=== PATIENT | male | born 1990 | race Caucasian/White ===

== ENCOUNTER 2018-03-08 18:30 | Emergency (ER) | payer OTHER ==
--- NOTE | 2018-03-08 19:34 | EDPHY ---
H & P Stated Complaint: R testicle retracted, pain. Time Seen by Provider: 03/08/18 19:25 HPI/ROS: CHIEF COMPLAINT: "I haven't seen my right testicle in 3 months" HISTORY OF PRESENT ILLNESS: 27-year-old male via private vehicle complaining of inability to visualize his right testicle for the past 3 months. Atraumatic. Believes it is in the inguinal canal. In the ER today due to progressive worsening pain the past 2-3 days. Able to urinate without difficulty. No nausea or vomiting. No fever or chills. No back or flank pain. No straddle injury. Last oral intake 3:00 p.m. Today: REVIEW OF SYSTEMS: 10 systems reviewed and negative with the exception of the elements mentioned in the history of present illness PAST MEDICAL & SURGICAL HISTORY: No pertinent medical or surgical history SOCIAL HISTORY: Nonsmoker PHYSICAL EXAM (Prior to examination, patient consented to physical exam, hands were washed and my usual and customary physical exam procedures followed) 1) GENERAL: Well-developed, well-nourished, alert and oriented. Appears to be in no acute distress. 2) HEAD: Normocephalic, atraumatic 3) HEENT: Pupils equal, round, reactive to light bilaterally. Sclera anicteric. 4) NECK: Full range of motion, no meningeal signs. 5) LUNGS: Clear auscultation bilaterally, no wheezes, no rhonchi, no retractions. 6) HEART: Regular rate and rhythm, no murmur, no heave, no gallop. 7) ABDOMEN: No guarding, tender to palpation right inguinal region with soft tissue swelling, no overlying skin changes such as erythema or ecchymosis.. Negative peritoneal sign 8) MUSCULOSKELETAL: Moving all extremities, no focal areas of tenderness, no obvious trauma. No peripheral edema or discoloration. 9) BACK: No CVA tenderness, no midline vertebral tenderness, no fluctuance, no step-off, no obvious trauma, no visual or palpable abnormality. 10) SKIN: No rash, no petechiae. 11) : Penile exam negative, no urethral discharge. left testicle exam negative, no tenderness. Unable to palpate right testicle. There is a right inguinal mass with tenderness noted.. No scrotal abnormality such as cellulitis or Cruz's gangrene. DIFFERENTIAL DIAGNOSIS: In no particular order including but not limited to incarcerated testicular hernia, testicular necrosis, inguinal hernia - Personal History Current Tetanus/Diphtheria Vaccine: Yes Current Tetanus Diphtheria and Acellular Pertussis (TDAP): Yes Tetanus Vaccine Date: 2018 - Medical/Surgical History Hx Asthma: No Hx Chronic Respiratory Disease: No Hx Diabetes: No Hx Cardiac Disease: No Hx Renal Disease: No Hx Cirrhosis: No Hx Alcoholism: No Hx HIV/AIDS: No Hx Splenectomy or Spleen Trauma: No Other PMH: Denies - Social History Smoking Status: Never smoked Constitutional: Initial Vital Signs Temperature (C) 36.5 C 03/08/18 18:59 Heart Rate 86 03/08/18 18:59 Respiratory Rate 16 03/08/18 18:59 Blood Pressure 136/81 H 03/08/18 18:59 O2 Sat (%) 96 03/08/18 18:59 O2 Delivery Mode Room Air Allergies/Adverse Reactions: No Known Allergies Allergy (Unverified 03/08/18 18:58) Home Medications: Medication Instructions Recorded NK [No Known Home Meds] 03/08/18 Medical Decision Making - Diagnostics Imaging Results: Imaging Impressions Testicular Ultrasound 03/08/18 19:26 Impression: 1. Undescended testicle on the right in the inguinal canal with heterogeneous decreased echogenicity and lack of internal color flow enhancement. 2. Normal-appearing left testicle. 3. Borderline varicocele on the left. Findings discussed with Christina ALVARADO at 20:14 hour, 03/08/2018. Abdomen CT 03/08/18 20:46 Impression: 1. Inguinal hernia on the right containing omental fat along with undescended testicle with surrounding haziness of the fatty tissue suggesting inflammatory process. 2. No CT evidence of appendicitis, abscess or bowel obstruction. Findings discussed with Christina ALVARADO at 21:21 hour, 03/08/2018. Images reviewed myself ED Course/Re-evaluation: 8:17 p.m.: Ultrasound testicles interpreted by staff radiologist shows an undescended right testicle with no flow. Left testicle with positive flow. 9:30 p.m.: Consultation Dr. Amrit Morales regarding patient's no mental inguinal hernia. He recommended no emergent management did recommend consultation with Urology regarding his testicle. 9:42 p.m.: Consultation with Urology Dr. Rosy Hudson recommended outpatient follow-up in planning for surgery for removal of the patient's testicle as well as repair of the hernia. This was explained to the patient with assistance of interpreter and translator. The patient feels comfortable being discharged. At no point during his ER visit has he complained of pain or requested analgesia. My Usual and customary urologic precautions and instructions provided . Care of patient under supervision of secondary supervising physician Dr Hart with whom I discussed case. - Data Points Laboratory Results: Laboratory Results 03/08/18 19:34 03/08/18 19:34 03/08/18 03/08/18 03/08/18 19:40 19:34 19:34 WBC 7.71 10^3/uL 10^3/uL (3.80-9.50) RBC 5.37 10^6/uL 10^6/uL (4.40-6.38) Hgb 16.2 g/dL g/dL (13.7-17.5) POC Hgb 16.3 gm/dL gm/dL (13.7-17.5) Hct 47.0 % % (40.0-51.0) POC Hct 48 % % (40-51) MCV 87.5 fL fL (81.5-99.8) MCH 30.2 pg pg (27.9-34.1) MCHC 34.5 g/dL g/dL (32.4-36.7) RDW 13.4 % % (11.5-15.2) Plt Count 350 10^3/uL 10^3/uL (150-400) MPV 10.0 fL fL (8.7-11.7) Neut % (Auto) 47.9 % % (39.3-74.2) Lymph % (Auto) 40.7 % % (15.0-45.0) [place] % (Auto) 8.9 % % (4.5-13.0) Eos % (Auto) 1.7 % % (0.6-7.6) Baso % (Auto) 0.5 % % (0.3-1.7) Nucleat RBC Rel Count 0.0 % % (0.0-0.2) Absolute Neuts (auto) 3.69 10^3/uL 10^3/uL (1.70-6.50) Absolute Lymphs (auto) 3.14 10^3/uL H 10^3/uL (1.00-3.00) Absolute Monos (auto) 0.69 10^3/uL 10^3/uL (0.30-0.80) Absolute Eos (auto) 0.13 10^3/uL 10^3/uL (0.03-0.40) Absolute Basos (auto) 0.04 10^3/uL 10^3/uL (0.02-0.10) Absolute Nucleated RBC 0.00 10^3/uL 10^3/uL (0-0.01) Immature Gran % 0.3 % % (0.0-1.1) Immature Gran # 0.02 10^3/uL 10^3/uL (0.00-0.10) POC Sodium 143 mEq/L mEq/L (135-145) Sodium 138 mEq/L mEq/L (135-145) POC Potassium 3.3 mEq/L mEq/L (3.3-5.0) Potassium 3.6 mEq/L mEq/L (3.5-5.2) POC Chloride 102 mEq/L mEq/L (97-110) Chloride 106 mEq/L mEq/L (97-110) Carbon Dioxide 24 mEq/l mEq/l (22-31) Anion Gap 8 mEq/L mEq/L (6-14) POC BUN 9 mg/dL mg/dL (7-23) BUN 11 mg/dL mg/dL (7-23) Creatinine 0.8 mg/dL mg/dL (0.7-1.3) POC Creatinine 0.8 mg/dL mg/dL (0.7-1.3) Estimated GFR > 60 Glucose 101 mg/dL H mg/dL (70-100) POC Glucose 104 mg/dL H mg/dL (70-100) Calcium 9.9 mg/dL mg/dL (8.5-10.4) Point of Care Test Results: Chemistry 03/08/18 19:40 POC Sodium 143 mEq/L mEq/L (135-145) POC Potassium 3.3 mEq/L mEq/L (3.3-5.0) POC Chloride 102 mEq/L mEq/L (97-110) POC BUN 9 mg/dL mg/dL (7-23) POC Creatinine 0.8 mg/dL mg/dL (0.7-1.3) POC Glucose 104 mg/dL H mg/dL (70-100) ISTAT H&H 03/08/18 19:40 POC Hgb 16.3 gm/dL gm/dL (13.7-17.5) POC Hct 48 % % (40-51) Departure - Departure Disposition: Home, Routine, Self-Care Clinical Impression: Testicular necrosis Condition: Good Instructions: Testicle Pain (ED) Additional Instructions: Return to the emergency department if you develop worsening pain, any skin changes or any other symptoms that concern you. Regrese al departamento de emergencia si presenta empeoramiento del dolor, algun cambio en la piel o cualquier otro sintoma que le preocupe. Referrals: Rosy Hudson MD [Medical Doctor] - 2-3 days, call for appt. (Dr Hudson is a urologist) Print Language: Bulgarian
[2018-03-08] MEDS ORDERED: IOPAMIDOL (ISOVUE 370) 100 ML BTL IV ONE (20:53)
[2018-03-08 21:40] LABS: PLATELET COUNT 350 10^3/uL (150-400)
[2018-03-08 21:43] VITALS: BP 124/80
== END 2018-03-08 22:05 | disposition home or self-care (01) ==
DX: Q53.10 Unspecified undescended testicle, unilateral (principal); K40.90 Unilateral inguinal hernia, without obstruction or gangrene, not specified as recurrent
CPT/HCPCS: 82435-PO; 82565-PO; 82947-PO; 84132-PO; 84295-PO; 84520-PO; 85014-ER; Q9967